=== PATIENT | male | born 1980 | race African-American/Black ===

== ENCOUNTER 2019-10-22 08:53 | Day surgery (SDC) | payer OTHER ==
[~2019-10-22 08:53] MED LIST: Buffered Lidocaine 1% SYRIN* 1 ML/SYRINGE INTRADERM ONE; Lactated Ringers 1000 ML Bag* 1,000 ML IV SCH
[2019-10-22] MEDS ORDERED: ceFAZolin 2 GM PREMIX in ORs 2 GM/50 ML BAG ONE (09:02)
[2019-10-22] MEDS ORDERED: fentaNYL* 50 MCG/ML 2 ML VIAL (100 MCG VIAL) ONE ×4 (09:13→15:57)
[2019-10-22] MEDS ORDERED: Midazolam* 1 MG/ML 2 ML VIAL (2 MG) ONE (09:14)
[2019-10-22] MEDS ORDERED: Propofol* 10 MG/ML 20 ML BTL ONE ×2 (09:15→10:41)
[2019-10-22] MEDS ORDERED: Glycopyrrolate IV* 0.2 MG/ML 1 ML VIAL ONE (09:17)
[2019-10-22] MEDS ORDERED: Rocuronium* 10 MG/ML VIAL ONE ×2 (09:18→13:35)
[2019-10-22] MEDS ORDERED: EPINEPHRINE 1 MG/ML 1 ML VIAL ONE (11:26)
[2019-10-22] MEDS ORDERED: Bupivacaine 0.5%* 50 ML MDV VIAL ONE (11:27)
[2019-10-22] MEDS ORDERED: Sevoflurane* BOTTLE ONE ×2 (12:34)
[2019-10-22] MEDS ORDERED: Naloxone* 0.4 MG/ML 1 ML VIAL IV PRN (13:04)
[2019-10-22] MEDS ORDERED: Acetaminophen IV 1GM/100ML * 1,000 MG/100 ML VIAL IVPB ONE (13:04)
[2019-10-22] MEDS ORDERED: Ondansetron INJ* 2 MG/ML VIAL ONE (13:52)
[2019-10-22] MEDS ORDERED: Metoclopramide IV* 5 MG/ML 2 ML VIAL ONE (13:52)
[2019-10-22] MEDS ORDERED: Sugammadex * 200 MG/2 ML VIAL IV PUSH ONE (13:52)
[2019-10-22] MEDS ORDERED: Ketorolac INJ* 30 MG/ML 1 ML VIAL ONE (15:02)
[2019-10-22] MEDS ORDERED: Acetaminophen IV 1GM/100ML * 100 ML ONE (15:57)
[2019-10-22] MEDS: fentaNYL* 50 MCG/ML 2 ML VIAL (100 MCG VIAL) IV PRN ×2 (16:00→16:16)
[2019-10-22] MEDS ORDERED: oxyCODONE/Acetamin 5/325 MG* TAB ONE (16:35)
[2019-10-22 16:51] VITALS: BP 120/83
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
== END 2019-10-22 17:30 | disposition home or self-care (01) ==
LOC: OR 08:53
PROVIDERS: ATTEND Orthopaedic Surgery
DX: S83.512A Sprain of anterior cruciate ligament of left knee, initial encounter (principal); S83.242A Other tear of medial meniscus, current injury, left knee, initial encounter; M25.562 Pain in left knee; E11.8 Type 2 diabetes mellitus with unspecified complications; Z98.890 Other specified postprocedural states; X50.0XXA Overexertion from strenuous movement or load, initial encounter
CPT/HCPCS: 76000; A9270-GY; C1713; J0690; J1885; J2250; J2405; J2704; J2765; J3010; J3490